=== PATIENT | male | born 2000 | race Two or more races ===

== ENCOUNTER 2022-09-29 18:08 | Emergency (ER) | payer MEDICAID ==
[~2022-09-29] VITALS: Ht 182.9 cm; Wt 80.0 kg
[2022-09-29 18:53] VITALS: BP 141/79
== END 2022-09-29 19:42 | disposition left against medical advice (07) ==
LOC: ER 18:11
DX: R07.81 Pleurodynia (principal); Z53.21 Procedure and treatment not carried out due to patient leaving prior to being seen by health care provider